=== PATIENT | male | born 1990 | race Caucasian/White ===

== ENCOUNTER 2021-11-04 16:19 | Outpatient (CLI) | payer OTHER, SELFPAY ==
[2021-11-04 09:58] LABS: Creatinine Urine 106.6 mg/dL
[2021-11-04 10:06] LABS: Microalbumin Creatinine Ratio 0 mg/g (0-30); Microalbumin Urine 1 mg/dL
[2021-11-04 11:15] LABS: Albumin* 4.8 g/dL (3.3-5.0); Chloride* 101 mmol/L (96-114)
[2021-11-04 11:16] LABS: Sodium* 138 mmol/L (135-149)
[2021-11-04 11:18] LABS: Alkaline Phosphatase* 81 U/L (40-150); Aspartate Amino Transferase* 53 U/L (12-35); Bilirubin Total* 0.5 mg/dL (0.1-1.5); Blood Urea Nitrogen* 18 mg/dL (5-24); Carbon Dioxide* 27 mmol/L (20-32); Cholesterol* 149 mg/dL (90-199); Creatinine* 0.8 mg/dL (0.5-1.5); Estimated Glomerular Filt Rate 120 ml/min; Glucose* 158 mg/dL (60-115); Total Protein* 7.4 g/dL (6.0-8.3); Triglycerides* 101 mg/dL (40-149)
[2021-11-04 11:19] LABS: Alanine Aminotransferase* 118 U/L (4-50); HDL Cholesterol* 39 mg/dL (>=40); LDL Cholesterol Calculated 90 mg/dL (<100)
[2021-11-04 11:33] LABS: Vitamin D 25 Hydroxy* 23 ng/mL (30-80)
[2021-11-04 11:54] LABS: Potassium* 4.7 mmol/L (3.6-5.1)
== END 2021-11-04 16:20 | disposition home or self-care (01) ==
PROVIDERS: PCP Family Medicine; Visit Provider Family Medicine
DX: Z00.00 Encounter for general adult medical examination without abnormal findings (principal); E11.9 Type 2 diabetes mellitus without complications; E03.9 Hypothyroidism, unspecified; E55.9 Vitamin D deficiency, unspecified; I10 Essential (primary) hypertension; E78.5 Hyperlipidemia, unspecified; R79.89 Other specified abnormal findings of blood chemistry
CPT/HCPCS: 80053; 80061; 82043; 82306; 82570; 84443

== ENCOUNTER 2022-02-24 08:31 | Outpatient (CLI) | payer OTHER, SELFPAY ==
[2022-02-24 10:12] LABS: Chloride* 105 mmol/L (96-114); Sodium* 140 mmol/L (135-149)
[2022-02-24 10:15] LABS: Creatinine* 0.8 mg/dL (0.5-1.5); Estimated Glomerular Filt Rate 119 ml/min; Potassium* 4.4 mmol/L (3.6-5.1)
[2022-02-24 10:16] LABS: Blood Urea Nitrogen* 15 mg/dL (5-24); Calcium* 9.8 mg/dL (8.4-10.6); Carbon Dioxide* 29 mmol/L (20-32); Glucose* 122 mg/dL (60-115)
== END 2022-02-24 08:32 | disposition home or self-care (01) ==
LOC: NFLDREF 08:32
PROVIDERS: PCP Family Medicine; Visit Provider Family Medicine
DX: I10 Essential (primary) hypertension (principal)
CPT/HCPCS: 80048

== ENCOUNTER 2022-04-27 10:16 | Outpatient (CLI) | payer OTHER, SELFPAY | END 2022-04-27 10:17 | disposition home or self-care (01) | PROVIDERS: PCP Family Medicine; Visit Provider Family Medicine | DX: Z01.818 Encounter for other preprocedural examination (principal) | CPT/HCPCS: 80048 ==

== ENCOUNTER 2022-05-05 07:48 | Day surgery (SDC) | payer OTHER, SELFPAY ==
[2022-05-05] VITALS (14 sets, daily range): BP systolic 100–118; BP diastolic 61–78; PULSE 74–90; RESP 13–24; TEMP 36.3–36.8; O2SAT 91–95; BMI 36.9
--- NOTE | 2022-05-05 08:05 | SUR.PREOP ---
Patient provided home covid negative results to RN.
[2022-05-05] MEDS: LACTATED RINGERS 1000 ML 1,000 ML 100 ML IV ×2 (08:20→10:00)
[2022-05-05] MEDS: SODIUM CHLORIDE 0.9 % (FLUSH) 10 ML SYRINGE IVF (08:20)
--- NOTE | 2022-05-05 08:48 | W.ANESCHARGE ---
Anesthesia Charges Start Date/Time Anesthesia Start Date: 05/05/22 Anesthesia Start Time: 09:08 Stop Date/Time Anesthesia Stop Date: 05/05/22 Anesthesia Stop Time: 11:08
[2022-05-05] MEDS: CEFAZOLIN 2 GM INJ IVP (09:15)
[2022-05-05] MEDS: BUPIVACAINE 0.5% 30 ML 10 ML INJECTION (09:27)
--- NOTE | 2022-05-05 11:01 | PM.GSPRC ---
Operative Note Date of procedure: 05/05/22 Pre-op diagnosis: 1. Supraumbilical hernia. Post-op diagnosis: 1. Incarcerated supraumbilical hernia containing omental fat. Type of Procedure: 1. Open supraumbilical hernia repair with mesh. Indications: 32-year-old male was seen in clinic for evaluation of an enlarging supraumbilical bulge that started years ago. The bulge has been increasing in size and the was getting concerned because the size was fairly large. Patient occasionally experienced pain at the bulge. The bulge was always protuberant when patient was standing up or doing activities. On clinical exam patient had an obese abdomen. There was an orange size abdominal bulge okay did just superior to the umbilicus. This was not tender to palpation during the exam. Given patient's clinical history and his physical exam, an open ventral hernia repair was recommended. The procedure was discussed in detail. The risks associated procedure including infection, bleeding, hernia recurrence, and injury to intra-abdominal organs were all discussed with the patient, and he agreed to proceed. Procedure Description: After discussing the risks and benefits of the procedure, the patient signed informed consent.? The operative site was marked and the patient was brought to the operating room and placed on the operating table in supine position.? Care was taken to pad the patient's pressure points.?? The patient was then intubated by anesthesia.?? The operative site was then prepped and draped in the usual sterile fashion.? A time-out was then performed. Local anesthetic was injected at the surgical site. A vertical surgical incision was made just above the umbilicus with a scalpel. Subcutaneous fat was divided with cautery. The hernia sac was identified and dissected off the subcutaneous fat with cautery. The hernia sac was grasped with Elvira clamps and incised with Metzenbaum scissors. The hernia sac was very fatty and omentum was noted to be incarcerated in the hernia sac. The omentum was reduced. Omental adhesions to the underside of the hernia sac were also divided with cautery. The anterior fascia was then grasped with Jenn clamps and preperitoneal space was developed for mesh placement. This was done with cautery. Hemostasis achieved with cautery. A small peritoneal opening was noted during this dissection. This was closed with 3-0 Vicryl suture. The hernia sac was then excised and peritoneum was closed with a running Vicryl suture. The fascial defect was approximately 5 x [address] Ventralex ST mesh was then used for repair. This was placed into the preperitoneal space and secured in place with 0-0 Nurolon stitches. The closure was examined, and no additional stitches need to be placed. Local anesthetic was injected into the subcutaneous space and anterior fascia. The fascia was closed over the mesh with a running 2-0 Vicryl suture. The incision was irrigated with normal saline. Subcutaneous fat was then reapproximated with interrupted 2-0 Vicryl sutures. The dermis was reapproximated with interrupted 3-0 Vicryl sutures. The skin was closed with a running 4-0 Monocryl stitch. Steri-Strips and sterile dressings were placed over the incision. ? Abdominal binder was placed around the patient. ? The patient was then woken and transported to the recovery area in stable condition. ? The patient tolerated the procedure well. Findings: Omentum incarcerated in the hernia sac. The hernia was repaired with mesh. Implants: Ventralex ST mesh. Anesthesia: GETA Surgeon: Albania Arnett MD Condition: stable Disposition: PACU
--- NOTE | 2022-05-05 11:11 | W.ANESCHARGE ---
Anesthesia Charges Start Date/Time Anesthesia Start Date: 05/05/22 Anesthesia Start Time: 09:08 Stop Date/Time Anesthesia Stop Date: 05/05/22 Anesthesia Stop Time: 11:08
[2022-05-05] MEDS: fentaNYL 100 MCG/2 ML inj 50 MCG IVP (11:28)
[2022-05-05] MEDS: HYDROCODONE-ACETAMIN 5-325 MG 1 TAB PO (12:06)
--- NOTE | 2022-05-05 13:32 | SUR.PREOP ---
Patient provided home covid negative results to RN.
== END 2022-05-05 13:30 | disposition home or self-care (01) ==
PROVIDERS: PCP Family Medicine; Visit Provider Surgery
PROC: (CPT 49594; principal; 2022-05-05 09:00)
DX: K42.0 Umbilical hernia with obstruction, without gangrene (principal); K43.6 Other and unspecified ventral hernia with obstruction, without gangrene
CPT/HCPCS: 49594; 00752; 82962; A4467; A9270; C1781; J0330; J0690; J1100; J1170; J2250; J2405; J2704; J3010; J3490; J7120

== ENCOUNTER 2022-12-21 09:54 | Outpatient (CLI) | payer OTHER, SELFPAY | END 2022-12-21 09:55 | disposition home or self-care (01) | PROVIDERS: PCP Family Medicine; Referring Provider Family Medicine; Visit Provider Family Medicine | DX: Z00.00 Encounter for general adult medical examination without abnormal findings (principal); E78.2 Mixed hyperlipidemia; E11.9 Type 2 diabetes mellitus without complications; I10 Essential (primary) hypertension; E55.9 Vitamin D deficiency, unspecified | CPT/HCPCS: 80053; 80061; 82043; 82306; 82570 ==

== ENCOUNTER 2023-01-25 21:00 | Outpatient (CLI) | payer OTHER, SELFPAY ==
--- NOTE | 2023-02-02 08:52 | W.PM.SLEEP ---
Sleep Study Details Details Interpreting Provider: Jordon Date of Sleep Study: 01/25/23 Sleep Study Details: STUDY TYPE:? Hospital polysomnogram with CPAP titration ? BMI:? 38 ORDERING PROVIDER:? John INDICATION:? Concerns about sleep apnea ? SLEEP SUMMARY:? 312 minutes total sleep time RESPIRATORY SUMMARY:? Mean oxygen awake 96 asleep 96, minimum 82, 2 minutes oxygen between 80 and 88% AHI 19.6, supine REM AHI 36, supine AHI 30, nonsupine AHI 11.5, nonsupine REM AHI 93.3 CPAP titration was performed the patient was titrated up to a pressure of 8 a limb Cole Ng most apneas and including supine REM sleep. Supine REM sleep was also seen in the pressures of 6 and 7. PERIODIC LIMB MOVEMENTS OF SLEEP:? Pre treatment index 0, post treatment index 44.3, index with arousal 0.8 CARDIAC:? Awake 72, asleep 68. No arrhythmias noted IMPRESSION:? Moderate obstructive sleep apnea with both supine and REM dependency. CPAP titration was successful at pressures of 6 and 8. RECOMMENDATION: Would recommend initiating CPAP pressure AutoSet 6-15. Other treatments could include weight loss, dental appliance and/or airway expansion surgery.
== END 2023-01-25 21:01 | disposition home or self-care (01) ==
PROVIDERS: PCP Family Medicine; Visit Provider Family Medicine
DX: G47.33 Obstructive sleep apnea (adult) (pediatric) (principal)
CPT/HCPCS: 95811

== ENCOUNTER 2024-05-05 08:46 | Outpatient (CLI) | payer OTHER, SELFPAY | END 2024-05-05 08:47 | disposition home or self-care (01) | LOC: NFLDREF 05-06 06:09 | PROVIDERS: PCP Family Medicine; Referring Provider Family Medicine; Visit Provider Family Medicine | DX: E11.65 Type 2 diabetes mellitus with hyperglycemia (principal); E55.9 Vitamin D deficiency, unspecified; Z79.84 Long term (current) use of oral hypoglycemic drugs; Z79.85 Long-term (current) use of injectable non-insulin antidiabetic drugs; Z13.220 Encounter for screening for lipoid disorders | CPT/HCPCS: 80053; 80061; 82043; 82306; 82570 ==

== ENCOUNTER 2025-01-08 08:22 | Outpatient (CLI) | payer OTHER, SELFPAY | END 2025-01-08 08:23 | disposition home or self-care (01) | LOC: NFLDREF 01-12 06:14 | PROVIDERS: PCP Family Medicine; Referring Provider Family Medicine; Visit Provider Family Medicine | DX: E55.9 Vitamin D deficiency, unspecified (principal) | CPT/HCPCS: 82306 ==